=== PATIENT | female | born 1940 | race Caucasian/White ===

== ENCOUNTER 2020-11-13 21:09 | Inpatient (IN) ==
[2020-11-13] MEDS ORDERED: Acetaminophen 325 MG TABLET PO PRN (23:01)
[2020-11-13] MEDS ORDERED: Ondansetron 4 MG/2 ML VIAL IVP PRN (23:01)
[2020-11-13] MEDS ORDERED: Naloxone 0.4 MG/ML INJ IVP PRN (23:01)
[2020-11-14] MEDS ORDERED: Perflutren Lipid Microsphere 1.3 ML in 0.9 % Sodium Chloride 8.7 ML IVP PRN (00:36)
[2020-11-14] MEDS ORDERED: Furosemide 20 MG/2 ML VIAL IVP ONE (00:36)
[2020-11-14 01:20] LABS: Hematocrit 39.9 % (35.3-44.9); Hemoglobin 13.3 g/dL (11.5-15.4); Mean Corpuscular HGB Conc 33.3 g/dL (31.6-35.5); Mean Corpuscular Hemoglobin 31.3 pg (28.0-33.3); Mean Corpuscular Volume 93.9 fL (83.0-100.0); Mean Platelet Volume 9.2 fL (9.4-12.4); Platelet Count 196 K/mcL (140-400); Red Blood Count 4.25 M/mcL (3.82-4.97); Red Cell Distribution Width 12.5 % (11.5-14.5); White Blood Count 10.2 K/mcL (4.3-11.1)
[2020-11-14 01:48] LABS: BUN/Creatinine Ratio 19 (6-26); Blood Urea Nitrogen 13 mg/dL (8-23); Carbon Dioxide 24 mEq/L (23-29); Chloride 103 mEq/L (98-107); Glucose 105 mg/dL (70-105); Magnesium 1.9 mg/dL (1.6-2.6); Osmolality,Calculated 278 (280-300); Phosphorous 3.1 mg/dL (2.7-4.5); Potassium 4.1 mEq/L (3.5-5.1); Sodium 134 mEq/L (136-145); Troponin I < 0.03 ng/mL (< 0.04); eGFR For African Americans > 60 (> 60); eGFR For Non-African Americans > 60 (> 60)
[2020-11-14] MEDS: *HR* Enoxaparin 40 MG/0.4 ML SYRINGE SQ SCH (05:52)
[2020-11-14] MEDS ORDERED: Furosemide 20 MG/2 ML VIAL IVP SCH (09:00)
[2020-11-14 12:14] LABS: ABG Base Excess 2 mEq/L (-2 to 3); ABG HCO3 26 mEq/L (21-27); ABG Oxygen Saturation 93 % (95-98); ABG PCO2 37 mmHg (35-45); ABG PH 7.45 pH Units (7.32-7.45); ABG PO2 62 mmHg (85-104); ABG TCO2 27 mEq/L (20-26)
[2020-11-15] MEDS: *HR* Enoxaparin 40 MG/0.4 ML SYRINGE SQ SCH (06:05)
[2020-11-15] MEDS ORDERED: Furosemide 20 MG TABLET PO SCH (09:00)
[2020-11-15] MEDS: levoFLOXacin 750 MG/150 ML 750 MG/150 ML BAG IVPB SCH (10:35)
[2020-11-15 10:52] LABS: BUN/Creatinine Ratio 26 (6-26); Blood Urea Nitrogen 27 mg/dL (8-23); Calcium 9.7 mg/dL (8.6-10.3); Carbon Dioxide 29 mEq/L (23-29); Chloride 96 mEq/L (98-107); Glucose 100 mg/dL (70-105); Magnesium 2.3 mg/dL (1.6-2.6); Osmolality,Calculated 279 (280-300); Phosphorous 3.7 mg/dL (2.7-4.5); Potassium 4.1 mEq/L (3.5-5.1); Sodium 132 mEq/L (136-145); eGFR For African Americans > 60 (> 60); eGFR For Non-African Americans 52 (> 60)
[2020-11-15 10:55] LABS: Estimated Average Glucose 117 mg/dl; Hemoglobin A1C 5.7 %
[2020-11-15] MEDS ORDERED: QUEtiapine Fumarate 25 MG TABLET PO PRN (11:04)
[2020-11-15] MEDS: predniSONE 20 MG TABLET PO SCH (13:47)
[2020-11-15] MEDS: Ipratropium/Albuterol Neb 3 ML IH SCH ×4 (16:13→23:53)
[2020-11-15] MEDS: Melatonin 3 MG TABLET PO PRN (20:38)
[2020-11-15] MEDS ORDERED: *HR* Metoprolol 5 MG/5 ML VIAL IVP ONE (21:50)
[2020-11-15] MEDS ORDERED: DilTIAZem 50 MG/50 ML IV.SOLN IVC SCH (22:45)
[2020-11-16 00:40] LABS: Basophils % 0.1 %; Hematocrit 39.3 % (35.3-44.9); Hemoglobin 13.4 g/dL (11.5-15.4); Immature Granulocytes % 0.5 % (0-4); Lymphocytes # 0.8 K/mcL (0.6-4.6); Lymphocytes % 9.7 %; Mean Corpuscular HGB Conc 34.1 g/dL (31.6-35.5); Mean Corpuscular Hemoglobin 31.2 pg (28.0-33.3); Mean Corpuscular Volume 91.6 fL (83.0-100.0); Mean Platelet Volume 9.4 fL (9.4-12.4); Monocytes # 0.2 K/mcL (0.0-1.3); Neutrophils # 7.6 K/mcL (1.6-8.9); Platelet Count 206 K/mcL (140-400); Red Blood Count 4.29 M/mcL (3.82-4.97); Red Cell Distribution Width 12.4 % (11.5-14.5); Segmented Neutrophils % 87.7 %; White Blood Count 8.7 K/mcL (4.3-11.1)
[2020-11-16 00:58] LABS: Calcium 9.2 mg/dL (8.6-10.3); Phosphorous 4.1 mg/dL (2.7-4.5); Potassium 4.2 mEq/L (3.5-5.1)
[2020-11-16] MEDS: Ipratropium/Albuterol Neb 3 ML IH SCH ×5 (03:44→19:25)
[2020-11-16] MEDS ORDERED: *HR* Heparin 5,000 UNIT/ML VIAL SQ SCH (06:00)
[2020-11-16] MEDS: predniSONE 20 MG TABLET PO SCH (08:01)
[2020-11-16] MEDS ORDERED: 0.9 % Sodium Chloride 1,000 ML IVC SCH (09:45)
[2020-11-16 10:51] LABS: Troponin I 0.07 ng/mL (< 0.04)
[2020-11-16] MEDS ORDERED: Aspirin 325 MG TABLET PO ONE (10:53)
[2020-11-16] MEDS: Apixaban 5 MG TABLET PO SCH ×2 (13:37→20:30)
[2020-11-16] MEDS: Melatonin 3 MG TABLET PO PRN (20:30)
[2020-11-17] MEDS: Ipratropium/Albuterol Neb 3 ML IH SCH ×7 (00:04→23:36)
[2020-11-17 05:56] LABS: BUN/Creatinine Ratio 31 (6-26); Blood Urea Nitrogen 27 mg/dL (8-23); Calcium 9.3 mg/dL (8.6-10.3); Carbon Dioxide 26 mEq/L (23-29); Chloride 97 mEq/L (98-107); Glucose 109 mg/dL (70-105); Osmolality,Calculated 274 (280-300); Phosphorous 3.1 mg/dL (2.7-4.5); Potassium 4.1 mEq/L (3.5-5.1); Sodium 129 mEq/L (136-145); eGFR For African Americans > 60 (> 60); eGFR For Non-African Americans > 60 (> 60)
[2020-11-17] MEDS: Apixaban 5 MG TABLET PO SCH ×2 (07:44→19:17)
[2020-11-17] MEDS: predniSONE 20 MG TABLET PO SCH (07:45)
[2020-11-17] MEDS: Aspirin 81 MG TAB.CHEW PO SCH (07:45)
[2020-11-17] MEDS: levoFLOXacin 750 MG/150 ML 750 MG/150 ML BAG IVPB SCH (07:47)
[2020-11-18] MEDS: Ipratropium/Albuterol Neb 3 ML IH SCH ×5 (03:31→19:50)
[2020-11-18 06:23] LABS: Alanine Aminotransferase 21 Units/L (7-52); Albumin 3.8 g/dL (3.5-5.7); Albumin/Globulin Ratio 1.7 (1.1-2.2); Alkaline Phosphatase 63 Units/L (34-104); Aspartate Amino Transferase 35 Units/L (13-39); BUN/Creatinine Ratio 27 (6-26); Bilirubin,Total 0.6 mg/dL (0.3-1.0); Blood Urea Nitrogen 21 mg/dL (8-23); Calcium 9.1 mg/dL (8.6-10.3); Carbon Dioxide 23 mEq/L (23-29); Chloride 96 mEq/L (98-107); Globulin 2.2 g/dL (2.4-3.5); Glucose 86 mg/dL (70-105); Osmolality,Calculated 264 (280-300); Potassium 3.8 mEq/L (3.5-5.1); Sodium 126 mEq/L (136-145); eGFR For African Americans > 60 (> 60); eGFR For Non-African Americans > 60 (> 60)
[2020-11-18] MEDS: Apixaban 5 MG TABLET PO SCH ×2 (08:21→20:14)
[2020-11-18] MEDS: Aspirin 81 MG TAB.CHEW PO SCH (08:21)
[2020-11-18] MEDS: predniSONE 20 MG TABLET PO SCH (08:21)
[2020-11-18] MEDS: DilTIAZem 50 MG/50 ML IV.SOLN IVC SCH (18:24)
[2020-11-18] MEDS: Melatonin 3 MG TABLET PO PRN (20:15)
[2020-11-19] MEDS: Ipratropium/Albuterol Neb 3 ML IH SCH ×4 (00:16→11:36)
[2020-11-19] MEDS: DilTIAZem 50 MG/50 ML IV.SOLN IVC SCH ×2 (04:45→12:08)
[2020-11-19 06:38] LABS: Alanine Aminotransferase 22 Units/L (7-52); Albumin 3.7 g/dL (3.5-5.7); Albumin/Globulin Ratio 1.6 (1.1-2.2); Alkaline Phosphatase 64 Units/L (34-104); Aspartate Amino Transferase 32 Units/L (13-39); BUN/Creatinine Ratio 27 (6-26); Bilirubin,Total 0.6 mg/dL (0.3-1.0); Blood Urea Nitrogen 23 mg/dL (8-23); Calcium 9.2 mg/dL (8.6-10.3); Carbon Dioxide 22 mEq/L (23-29); Chloride 95 mEq/L (98-107); Globulin 2.3 g/dL (2.4-3.5); Glucose 102 mg/dL (70-105); Osmolality,Calculated 266 (280-300); Sodium 126 mEq/L (136-145); eGFR For African Americans > 60 (> 60); eGFR For Non-African Americans > 60 (> 60)
[2020-11-19] MEDS: Aspirin 81 MG TAB.CHEW PO SCH (08:09)
[2020-11-19] MEDS: Apixaban 5 MG TABLET PO SCH ×2 (08:09→20:10)
[2020-11-19] MEDS: predniSONE 20 MG TABLET PO SCH (08:09)
[2020-11-19] MEDS: levoFLOXacin 750 MG TABLET PO SCH (08:09)
[2020-11-19 14:58] LABS: Bilirubin,Urine Negative (Negative); Blood,Urine Trace (Negative); Clarity,Urine Clear (Clear); Color,Urine Yellow (Yellow); Glucose,Urine (UA) Normal (Normal); Ketones,Urine Negative (Negative); Leukocyte Esterase,Urine Negative (Negative); Mucus,Urine Few per lpf (None-Few); Nitrite,Urine Negative (Negative); Protein,Urine Trace mg/dL (Neg-Trace); Specific Gravity,Urine 1.021 (1.010-1.025); Squamous Epithelial Cell,Urine Few per hpf (None-Few); Urobilinogen,Urine Normal (Normal); WBC,Urine 0-3 per hpf (0-3)
[2020-11-19 15:00] LABS: Protein/Creatinine Ratio,Urine 0.14 mg/mg (0.00-0.20)
[2020-11-19] MEDS ORDERED: Levalbuterol Neb 1.25 MG/3 ML IH PRN (15:54)
[2020-11-19 15:57] LABS: Sodium, Urine 14.1 mEq/L
[2020-11-19] MEDS: Melatonin 3 MG TABLET PO PRN (20:11)
[2020-11-20] MEDS: DilTIAZem 50 MG/50 ML IV.SOLN IVC SCH (04:01)
[2020-11-20 06:21] LABS: Alanine Aminotransferase 20 Units/L (7-52); Albumin 3.6 g/dL (3.5-5.7); Albumin/Globulin Ratio 1.6 (1.1-2.2); Alkaline Phosphatase 60 Units/L (34-104); Aspartate Amino Transferase 24 Units/L (13-39); BUN/Creatinine Ratio 27 (6-26); Bilirubin,Total 0.6 mg/dL (0.3-1.0); Blood Urea Nitrogen 25 mg/dL (8-23); Calcium 9.2 mg/dL (8.6-10.3); Carbon Dioxide 24 mEq/L (23-29); Chloride 95 mEq/L (98-107); Globulin 2.2 g/dL (2.4-3.5); Glucose 111 mg/dL (70-105); Osmolality,Calculated 265 (280-300); Potassium 4.6 mEq/L (3.5-5.1); Sodium 125 mEq/L (136-145); Total Protein 5.8 g/dL (6.4-8.9); eGFR For African Americans > 60 (> 60); eGFR For Non-African Americans 58 (> 60)
[2020-11-20] MEDS: Apixaban 5 MG TABLET PO SCH ×2 (08:55→19:58)
[2020-11-20] MEDS: Aspirin 81 MG TAB.CHEW PO SCH (08:55)
[2020-11-20] MEDS: Melatonin 3 MG TABLET PO PRN (19:58)
[2020-11-21 02:41] LABS: Alanine Aminotransferase 18 Units/L (7-52); Albumin 3.2 g/dL (3.5-5.7); Albumin/Globulin Ratio 1.6 (1.1-2.2); Alkaline Phosphatase 55 Units/L (34-104); Aspartate Amino Transferase 22 Units/L (13-39); BUN/Creatinine Ratio 36 (6-26); Bilirubin,Total 0.5 mg/dL (0.3-1.0); Blood Urea Nitrogen 27 mg/dL (8-23); Calcium 8.1 mg/dL (8.6-10.3); Carbon Dioxide 20 mEq/L (23-29); Chloride 99 mEq/L (98-107); Glucose 84 mg/dL (70-105); Osmolality,Calculated 266 (280-300); Potassium 4.2 mEq/L (3.5-5.1); Sodium 126 mEq/L (136-145); Total Protein 5.2 g/dL (6.4-8.9); eGFR For African Americans > 60 (> 60); eGFR For Non-African Americans > 60 (> 60)
[2020-11-21] MEDS: Aspirin 81 MG TAB.CHEW PO SCH (08:03)
[2020-11-21] MEDS: Apixaban 5 MG TABLET PO SCH ×2 (08:04→20:46)
[2020-11-21] MEDS: levoFLOXacin 750 MG TABLET PO SCH (08:04)
[2020-11-22 06:27] LABS: Alanine Aminotransferase 15 Units/L (7-52); Albumin 3.2 g/dL (3.5-5.7); Albumin/Globulin Ratio 1.7 (1.1-2.2); Alkaline Phosphatase 57 Units/L (34-104); Aspartate Amino Transferase 18 Units/L (13-39); BUN/Creatinine Ratio 29 (6-26); Bilirubin,Total 0.4 mg/dL (0.3-1.0); Blood Urea Nitrogen 24 mg/dL (8-23); Calcium 8.4 mg/dL (8.6-10.3); Carbon Dioxide 22 mEq/L (23-29); Chloride 102 mEq/L (98-107); Globulin 1.9 g/dL (2.4-3.5); Glucose 99 mg/dL (70-105); Osmolality,Calculated 272 (280-300); Potassium 4.1 mEq/L (3.5-5.1); Sodium 129 mEq/L (136-145); Total Protein 5.1 g/dL (6.4-8.9); eGFR For African Americans > 60 (> 60); eGFR For Non-African Americans > 60 (> 60)
[2020-11-22] MEDS: Aspirin 81 MG TAB.CHEW PO SCH (08:31)
[2020-11-22] MEDS: Apixaban 5 MG TABLET PO SCH ×2 (08:32→20:00)
[2020-11-22] MEDS: DilTIAZem 50 MG/50 ML IV.SOLN IVC SCH (16:27)
[2020-11-22] MEDS ORDERED: 0.9 % Sodium Chloride 250 ML IVC ONE (16:34)
[2020-11-22] MEDS ORDERED: 0.9 % Sodium Chloride 250 ML ONE (16:39)
[2020-11-22] MEDS: Melatonin 3 MG TABLET PO PRN (20:01)
[2020-11-23 06:49] LABS: Alanine Aminotransferase 15 Units/L (7-52); Albumin 3.1 g/dL (3.5-5.7); Albumin/Globulin Ratio 1.7 (1.1-2.2); Alkaline Phosphatase 84 Units/L (34-104); Aspartate Amino Transferase 16 Units/L (13-39); BUN/Creatinine Ratio 39 (6-26); Bilirubin,Total 0.5 mg/dL (0.3-1.0); Blood Urea Nitrogen 30 mg/dL (8-23); Calcium 8.4 mg/dL (8.6-10.3); Carbon Dioxide 22 mEq/L (23-29); Chloride 103 mEq/L (98-107); Globulin 1.8 g/dL (2.4-3.5); Glucose 118 mg/dL (70-105); Osmolality,Calculated 281 (280-300); Potassium 4.2 mEq/L (3.5-5.1); Sodium 132 mEq/L (136-145); Total Protein 4.9 g/dL (6.4-8.9); eGFR For African Americans > 60 (> 60); eGFR For Non-African Americans > 60 (> 60)
[2020-11-23] MEDS: Aspirin 81 MG TAB.CHEW PO SCH (08:20)
[2020-11-23] MEDS: levoFLOXacin 750 MG TABLET PO SCH (08:20)
[2020-11-23] MEDS: Apixaban 5 MG TABLET PO SCH ×2 (08:20→20:09)
[2020-11-23 10:13] LABS: Basophils # 0.1 K/mcL (0.0-0.2); Basophils % 0.4 %; Eosinophils # 0.1 K/mcL (0.0-0.6); Eosinophils % 0.6 %; Hematocrit 43.2 % (35.3-44.9); Hemoglobin 14.8 g/dL (11.5-15.4); Immature Granulocytes % 1.4 % (0-4); Lymphocytes # 1.4 K/mcL (0.6-4.6); Lymphocytes % 7.6 %; Mean Corpuscular HGB Conc 34.3 g/dL (31.6-35.5); Mean Corpuscular Hemoglobin 32.3 pg (28.0-33.3); Mean Corpuscular Volume 94.3 fL (83.0-100.0); Mean Platelet Volume 9.2 fL (9.4-12.4); Monocytes # 1.1 K/mcL (0.0-1.3); Monocytes % 5.9 %; Neutrophils # 15.4 K/mcL (1.6-8.9); Platelet Count 258 K/mcL (140-400); Red Blood Count 4.58 M/mcL (3.82-4.97); Red Cell Distribution Width 12.9 % (11.5-14.5); Segmented Neutrophils % 84.1 %; White Blood Count 18.3 K/mcL (4.3-11.1)
[2020-11-23] MEDS ORDERED: 0.9 % Sodium Chloride 250 ML IVC ONE ×2 (15:46→18:38)
[2020-11-23] MEDS: DilTIAZem 50 MG/50 ML IV.SOLN IVC SCH (16:09)
[2020-11-23] MEDS ORDERED: *HR* Metoprolol 5 MG/5 ML VIAL IVP ONE ×2 (17:50→17:53)
[2020-11-24 06:19] LABS: Basophils # 0.1 K/mcL (0.0-0.2); Basophils % 0.6 %; Eosinophils # 0.3 K/mcL (0.0-0.6); Hematocrit 40.1 % (35.3-44.9); Hemoglobin 13.4 g/dL (11.5-15.4); Lymphocytes # 1.4 K/mcL (0.6-4.6); Lymphocytes % 9.9 %; Mean Corpuscular HGB Conc 33.4 g/dL (31.6-35.5); Mean Corpuscular Hemoglobin 31.3 pg (28.0-33.3); Mean Corpuscular Volume 93.7 fL (83.0-100.0); Mean Platelet Volume 9.4 fL (9.4-12.4); Monocytes # 1.5 K/mcL (0.0-1.3); Monocytes % 10.2 %; Neutrophils # 10.7 K/mcL (1.6-8.9); Platelet Count 215 K/mcL (140-400); Red Blood Count 4.28 M/mcL (3.82-4.97); Red Cell Distribution Width 12.9 % (11.5-14.5); Segmented Neutrophils % 75.3 %; White Blood Count 14.2 K/mcL (4.3-11.1)
[2020-11-24 06:36] LABS: Alanine Aminotransferase 12 Units/L (7-52); Albumin/Globulin Ratio 1.7 (1.1-2.2); Alkaline Phosphatase 61 Units/L (34-104); Aspartate Amino Transferase 15 Units/L (13-39); BUN/Creatinine Ratio 31 (6-26); Bilirubin,Total 0.4 mg/dL (0.3-1.0); Blood Urea Nitrogen 24 mg/dL (8-23); Calcium 8.4 mg/dL (8.6-10.3); Carbon Dioxide 26 mEq/L (23-29); Chloride 105 mEq/L (98-107); Globulin 1.8 g/dL (2.4-3.5); Glucose 93 mg/dL (70-105); Osmolality,Calculated 284 (280-300); Potassium 4.1 mEq/L (3.5-5.1); Sodium 135 mEq/L (136-145); Total Protein 4.8 g/dL (6.4-8.9); eGFR For African Americans > 60 (> 60); eGFR For Non-African Americans > 60 (> 60)
[2020-11-24] MEDS: Aspirin 81 MG TAB.CHEW PO SCH (11:25)
[2020-11-24] MEDS: Apixaban 5 MG TABLET PO SCH (11:25)
[2020-11-24] MEDS: Nystatin SUSP 5 ML UD.LIQ PO SCH ×2 (12:20→12:23)
[2020-11-24 14:20] LABS: Adenovirus Not Detected (Not Detect); Bordetella Pertussis Not Detected (Not Detect); Chlamydophila pneumoniae Not Detected (Not Detect); Coronavirus 229E Not Detected (Not Detect); Coronavirus HKU1 Not Detected (Not Detect); Coronavirus NL63 Not Detected (Not Detect); Coronavirus OC43 Not Detected (Not Detect); Human Metapneumovirus Not Detected (Not Detect); Human Rhinovirus/Enterovirus Not Detected (Not Detect); Influenza A Subtype 2009 H1 Not Detected (Not Detect); Influenza B Not Detected (Not Detect); Mycoplasma pneumoniae Not Detected (Not Detect); Parainfluenza Virus 1 Not Detected (Not Detect); Parainfluenza Virus 2 Not Detected (Not Detect); Parainfluenza Virus 3 Not Detected (Not Detect); Parainfluenza Virus 4 Not Detected (Not Detect); Respiratory Syncytial Virus Not Detected (Not Detect); SARS-CoV-2 Not Detected (Not Detect)
[2020-11-24 16:29] VITALS: BP 123/66
== END 2020-11-23 18:50 | DRG 280 ==
LOC: 3BNU → SUATTDRO 22:38 → 3BNU 11-15 01:26
PROVIDERS: ADMIT Family Medicine; ATTEND Nurse Practitioner